=== PATIENT | male | born 1980 | race Caucasian/White ===

== ENCOUNTER 2023-03-17 21:24 | Emergency (ER) | payer OTHER, MEDICAID, SELFPAY ==
[2023-03-17 21:29] VITALS: BP 160/116; PULSE 108; O2SAT 98
[2023-03-17 21:30] VITALS: BP 188/107; PULSE 99; RESP 16; TEMP 36.9; O2SAT 99; BMI 29.5
[2023-03-17 21:48] LABS: MANUAL DIFF FLAG NO
[2023-03-17 21:50] LABS: Basophils Absolute Auto 0.1 X10*3/uL (0.0-0.2); Basophils Percent Auto 0.7 % (0-2); Eosinophils Absolute Auto 0.1 X10*3/uL (0.0-0.4); Eosinophils Percent Auto 1.2 % (0-4); Hematocrit 46.8 % (42.0-52.0); Hemoglobin 14.5 g/dl (14.0-18.0); Imm Gran Abs Auto 0.01 X10*3/uL (0.00-0.03); Imm Gran Pct Auto 0.1 % (0.0-0.4); Lymphocytes Absolute Auto 2.2 X10*3/uL (1.2-4.9); Lymphocytes Percent Auto 32.3 % (20-40); Mean Corpuscular Hemoglobin 25.9 pg (27.0-33.0); Mean Corpuscular Volume 83.7 fL (80.0-98.0); Mean Platelet Volume 9.8 fL (9.4-12.4); Monocytes Absolute Auto 0.4 X10*3/uL (0.1-1.2); Monocytes Percent Auto 6.1 % (2-11); Neutrophils Absolute Auto 4.1 x10*3/uL (2.0-8.3); Neutrophils Percent Auto 59.6 % (45-73); Platelet Count 318 X10*3/uL (160-400); Red Blood Count 5.59 X10*6/uL (4.60-5.80); Red Cell Distribution Width 15.2 % (11.0-16.0); White Blood Count 6.9 X10*3/uL (4.8-10.8)
[2023-03-17 22:05] LABS: Anion Gap 13 (12-20); Blood Urea Nitrogen 15 mg/dL (9-16); Calcium 9.8 mg/dL (8.4-10.2); Carbon Dioxide 31 mmol/L (22-29); Chloride 104 mmol/L (96-108); Creatinine Clr Calc Pharmacy 90.5; Estimated Glomerular Filt Rate > 60; Glucose Random 134 mg/dL (60-115); Sodium 144 mmol/L (135-145)
--- NOTE | 2023-03-17 22:52 | PC.NURSE ---
Spoke with Veronica, the manager enrollment at [facility]. Would like to be notified when disposition is made for pt. States they will arrange ride for pt if discharge. Can be reached at [phone].
--- NOTE | 2023-03-17 22:55 | ECG_ITS ---
Test Reason : DIZZINESS Blood Pressure : / mmHG Vent. Rate : 091 BPM Atrial Rate : 091 BPM P-R Int : 142 ms QRS Dur : 090 ms QT Int : 346 ms P-R-T Axes : 047 009 048 degrees QTc Int : 425 ms Normal sinus rhythm Normal ECG No previous ECGs available Referred By: Alexandro Murillo Electronically Signed By:LIZ SWEENEY MD
[2023-03-17 23:24] VITALS: BP 175/99; PULSE 91; RESP 18; O2SAT 97
--- NOTE | 2023-03-17 23:24 | ED_ITS ---
HPI - General Adult General Chief complaint: Headache Stated complaint: dizziness Time Seen by Provider: 03/17/23 22:44 Source: patient, RN notes reviewed and old records reviewed Mode of arrival: ambulatory Limitations: no limitations History of Present Illness HPI narrative: 42-year-old male with past medical history significant for diabetes, hypertension, polysubstance abuse presents for evaluation of a near syncopal episode. Patient is currently at a recovery center where he has been for last 3 weeks to detox from cocaine and alcohol He has not used either of these substances within the last 3 weeks He states that when he went to get his medications just prior to arrival he became very dizzy and felt weak. He felt like he was going to pass out but did not He denies any chest pain, shortness of breath, palpitations. Currently he feels back to his baseline. He denies any history of cardiac disease No other complaints or concerns at this time Related Data Allergies Allergy/AdvReac Type Severity Reaction Status Date / Time No Known Allergies Allergy Verified 03/17/23 21:37 Review of Systems Constitutional: Constitutional: Reports as per HPI, Denies chills, Denies fatigue and Denies fever(s) Cardiovascular: Cardiovascular: Denies chest pain and Denies dyspnea Respiratory: Respiratory: Denies cough and Denies dyspnea Gastrointestinal: Gastrointestinal: Denies abdominal pain, Denies constipation and Denies vomiting Genitourinary: Genitourinary: Denies difficulty urinating and Denies dysuria Neurologic: Denies focal weakness Endocrine: Endocrine: Denies fatigue PMFSH Social History Social History Advance Directives: No Advance Directives Information Provided: No Physical Exam ED Vital Signs: Vital Signs - 24 hr 03/17/23 21:30 Temperature 98.5 F Pulse Rate 99 Respiratory Rate 16 Blood Pressure 188/107 H Pulse Oximetry 99 Oxygen Delivery Method Room Air BMI result Body Mass Index 29.5 Const General: healthy appearing, comfortable, no acute distress, alert and awake Nutritional Appearance: well nourished Orientation/consciousness: patient oriented x3 HENMT Head: Yes normocephalic and Yes atraumatic Eyes Eyelids: Yes eyelids normal Conjunctivae: conjunctivae normal Sclerae: sclerae normal Corneas: corneas normal Pupils: Equal, round and reactive pupils present EOM: EOMs intact bilaterally Neck Neck: Yes full ROM Resp Effort & Inspection: normal respiratory effort, able to speak in complete sentences, no audible wheezes and not labored Auscultation: clear to auscultation bilaterally Cardio Rate: regular rate Rhythm: regular rhythm GI Inspection: No distended Palpation (GI): Soft to palpation, not firm, nontender, no guarding and not rigid Auscultation: normoactive bowel sounds Skin General skin exam: no rashes or lesions noted and elasticity normal Neuro General: patient oriented x3 Cranial nerves: Yes CN's II-XII intact bilaterally, Yes Equal, round and reactive pupils present and Yes Bilaterally intact EOM present Cognition (Neuro): normal cognition Extrem Other: Moving all extremities well without any obvious deformities Medical Decision Making Medical Decision Making MDM Narrative: 42-year-old male presents for evaluation of a near syncopal episode. He did not have a syncopal episode, never had any chest pain or shortness of breath. Patient had a workup that included labs, EKG. All of which was reassuring. His CO2 was slightly high which may be related to sleep apnea. EKG was sinus rhythm at 91 beats per minute. No acute ischemic changes. Patient was mildly hypertensive but is currently 175/99. Again he is currently asymptomatic, it is possible he had a vasovagal episode but is stable for discharge at this time. Differential Diagnosis Near syncope Syncope Cardiac arrhythmia Orthostasis Lab Data 03/17/23 21:43 03/17/23 21:43 Labs: Lab Results 03/17/23 03/17/23 Range/Units 21:43 21:43 WBC 6.9 (4.8-10.8) X10*3/uL RBC 5.59 (4.60-5.80) X10*6/uL Hgb 14.5 (14.0-18.0) g/dl Hct 46.8 (42.0-52.0) % MCV 83.7 (80.0-98.0) fL MCH 25.9 L (27.0-33.0) pg MCHC 31.0 (31.0-36.0) g/dl RDW 15.2 (11.0-16.0) % Plt Count 318 (160-400) X10*3/uL MPV 9.8 (9.4-12.4) fL Immature Gran % (Auto) 0.1 (0.0-0.4) % Neut % (Auto) 59.6 (45-73) % Lymph % (Auto) 32.3 (20-40) % [place] % (Auto) 6.1 (2-11) % Eos % (Auto) 1.2 (0-4) % Baso % (Auto) 0.7 (0-2) % Lymph # (Auto) 2.2 (1.2-4.9) X10*3/uL [place] # (Auto) 0.4 (0.1-1.2) X10*3/uL Eos # (Auto) 0.1 (0.0-0.4) X10*3/uL Baso # (Auto) 0.1 (0.0-0.2) X10*3/uL Abs Immat Gran (auto) 0.01 (0.00-0.03) X10*3/uL Absolute Neuts (auto) 4.1 (2.0-8.3) x10*3/uL Absolute Nucleated RBC 0.000 (0.0-0.012) X10*3/uL Nucleated RBC % (auto) 0.0 (0.0-0.2) /100WBC Sodium 144 (135-145) mmol/L Potassium 4.0 (3.3-5.1) mmol/L Chloride 104 (96-108) mmol/L Carbon Dioxide 31 H (22-29) mmol/L Anion Gap 13 (12-20) BUN 15 (9-16) mg/dL Creatinine 1.11 (0.5-1.4) mg/dL Estim Creat Clear Calc 90.5 Estimated GFR > 60 Random Glucose 134 H (60-115) mg/dL Calcium 9.8 (8.4-10.2) mg/dL Discharge Plan Discharge Clinical Impression: Near syncope Patient Disposition: Xfer Other Transfer Details: [facility] recovery center Instructions: Near Syncope (ED) Additional Instructions: Your workup in the emergency department today was reassuring. This includes your blood work, EKG Take all your medications as prescribed Follow-up with your primary doctor
--- NOTE | 2023-03-17 23:27 | PC.NURSE ---
Veronica, program facilitator states she will be out to get pt in 15 minutes.
== END 2023-03-18 00:02 | disposition home or self-care (01) ==
PROVIDERS: Emergency Provider Emergency Medicine; PCP Internal Medicine
DX: R55 Syncope and collapse (principal); E11.9 Type 2 diabetes mellitus without complications; I10 Essential (primary) hypertension; F19.10 Other psychoactive substance abuse, uncomplicated
CPT/HCPCS: 36415; 80048; 85025; 93005; 99283; 99285

== ENCOUNTER 2023-03-23 14:42 | Emergency (ER) | payer OTHER, SELFPAY ==
--- NOTE | ~2023-03-23 | XR_ITS ---
EXAMINATION: Lumbar spine and sacrum x-rays CLINICAL INFORMATION: Pain COMPARISON: None. TECHNIQUE: 3 views of the lumbar spine and 3 views of the sacrum FINDINGS: Lumbar spine: There may be transitional anatomy. For the purposes of dictation, levels are designated with hypoplastic ribs at T12. There is a mild compression fracture of the L1 vertebral body indeterminate age. No other fracture. Disc spaces are normal. Paraspinal soft tissues are normal. Sacrum and coccyx: Bone alignment is normal. No fracture or dislocation. The sacroiliac joints are normal. There are osteophytes at both hip joints. XR/XR lumbar spine 2-3V IMPRESSION: Lumbar spine: Mild L1 vertebral body compression fracture, indeterminate age. Sacrum and coccyx: Unremarkable exam.
--- NOTE | ~2023-03-23 | XR_ITS ---
EXAMINATION: XR ABDOMEN KUB CLINICAL INDICATION: Back pain COMPARISON: None available. TECHNIQUE: AP view of the abdomen. FINDINGS: The bowel gas pattern is normal with no evidence of ileus or obstruction. No unusual soft tissue calcifications are noted. The bones are unremarkable. XR/XR KUB IMPRESSION: Unremarkable examination.
--- NOTE | ~2023-03-23 | XR_ITS ---
EXAMINATION: Lumbar spine and sacrum x-rays CLINICAL INFORMATION: Pain COMPARISON: None. TECHNIQUE: 3 views of the lumbar spine and 3 views of the sacrum FINDINGS: Lumbar spine: There may be transitional anatomy. For the purposes of dictation, levels are designated with hypoplastic ribs at T12. There is a mild compression fracture of the L1 vertebral body indeterminate age. No other fracture. Disc spaces are normal. Paraspinal soft tissues are normal. Sacrum and coccyx: Bone alignment is normal. No fracture or dislocation. The sacroiliac joints are normal. There are osteophytes at both hip joints. XR/XR sacrum coccyx min 2V IMPRESSION: Lumbar spine: Mild L1 vertebral body compression fracture, indeterminate age. Sacrum and coccyx: Unremarkable exam.
--- NOTE | 2023-03-23 15:27 | ED.GENADULT ---
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 He otherwise denies any fecal incontinence during waking hours, denies any weakness in either lower extremity and denies any difficulty with urination. He denies any IVDA, fevers, chills and states he has had some nausea and reports he has had a history of back injuries and has underlying neuropathy in bilateral legs. Patient states he has been taking all medication as prescribed and does say that his point of care at the home was 400 earlier. Related Data Allergies Allergy/AdvReac Type Severity Reaction Status Date / Time No Known Allergies Allergy Verified 03/17/23 21:37 Review of Systems Review of Systems: Pertinent positives and negatives as stated in HPI [facility] Past Medical History Source: nursing notes reviewed Medical History Back pain Diabetes Neuropathy Social History Social History Alcohol intake: current Smoked in Last 30 Days: No Use of substances other than those prescribed or required for medical reasons: Yes Substance Use Type: Crack/Cocaine Advance Directives: No Advance Directives Information Provided: No Physical Exam ED Vital Signs: Vital Signs - 24 hr 03/23/23 15:29 03/23/23 17:01 03/23/23 18:00 Temperature 96.8 F 98.1 F 98 F Pulse Rate 103 H 95 93 Respiratory Rate 18 16 16 Blood Pressure 189/112 H 189/105 H 189/117 H Pulse Oximetry 98 97 98 Oxygen Delivery Method Room Air Room Air BMI result Body Mass Index 30.4 VITAL SIGNS: Reviewed. GENERAL: Well developed, well nourished, in no acute distress. HEAD: Normocephalic/atraumatic EYES: PERRLA, EOMI EARS: Ext canals without abnormality NOSE: Nares patent bilateral OROPHARYNX: no oral lesions noted, posterior pharynx clear NECK: Supple, no adenopathy LUNGS: Normal breath sounds. No adventitious sounds or accessory muscle use. SpO2<98> CARDIOVASCULAR: Regular rate and rhythm without noted murmurs ABDOMEN: Soft, non-tender, non-distended with bowel sounds, no groin numbness. KULWINDER: Declined MUSCULOSKELETAL: No tenderness, deformities, or effusions noted on gross inspection. EXTREMITIES: No cyanosis, clubbing or edema. SKIN: Inspection of the skin reveals no rashes NEUROLOGIC: Alert and oriented x 4. Strength and sensation to light touch were grossly intact x 4, DTRs intact. Course Course Course Narrative: This is an RME: Additional HPI, ROS, PE not included below will be deferred to primary provider. This is a 89-iinc-wva-male presenting to the emergency department with complaints of fecal incontinence during the night for the last 2 weeks. Also reports that his sugars have been elevated over the last 2 weeks - running in the 400s.No bloody or black stool. From [place], but living in [place] at a transitional housing/sober living for etoh and cocaine. no hx of IVDA. Complaining of back pain. Has chronic neuropathy in BL legs, reports weakness in lower extremities for the last 2 years. Pt has some lumbar spine tenderness with palpation, no overlying erythema or edema noted. Plan: Labs , POC ordered. Xray l-spine Medical Decision Making Medical Decision Making MDM Narrative: 42-year-old male with prior history of alcohol and drug use presents with concerns that the food is very bad at his current residence that he has had diarrhea but otherwise denies symptoms that would suggest infectious in etiology. On review of all investigations there are no findings to further suggest acute bony or intestinal etiologies. I have no concerns for cauda equine at this time as DTRs are intact and there is no history of IVDA, saddle anesthesia, or weakness in either lower extremity. There is a noted L1 compression fracture that although the radiologist annotated age indeterminate patient states that this has been there since a few years ago from a back injury for which he wore a back brace for an extended period of time. On review of all investigations my interpretation is that this is likely associated with the detox process and there are no clinical or historical findings or objective findings to suggest infectious etiology, no concerns of cauda equina and no episodes of diarrhea here in the emergency room for resting further conduct evaluation on. He is otherwise hemodynamically stable mildly hypertensive but suspect he needs to return home and take his medications. Differential Diagnosis Please see the discussion above Lab Data Please see the discussion above 03/23/23 15:46 03/23/23 15:46 Labs: Lab Results 03/23/23 03/23/23 03/23/23 Range/Units 15:42 15:46 15:46 WBC 5.8 (4.8-10.8) X10*3/uL RBC 4.96 (4.60-5.80) X10*6/uL Hgb 13.3 L (14.0-18.0) g/dl Hct 42.1 (42.0-52.0) % MCV 84.9 (80.0-98.0) fL MCH 26.8 L (27.0-33.0) pg MCHC 31.6 (31.0-36.0) g/dl RDW 14.8 (11.0-16.0) % Plt Count 273 (160-400) X10*3/uL MPV 10.1 (9.4-12.4) fL Immature Gran % (Auto) 0.2 (0.0-0.4) % Neut % (Auto) 54.9 (45-73) % Lymph % (Auto) 37.1 (20-40) % [place] % (Auto) 5.5 (2-11) % Eos % (Auto) 1.6 (0-4) % Baso % (Auto) 0.7 (0-2) % Lymph # (Auto) 2.2 (1.2-4.9) X10*3/uL [place] # (Auto) 0.3 (0.1-1.2) X10*3/uL Eos # (Auto) 0.1 (0.0-0.4) X10*3/uL Baso # (Auto) 0.0 (0.0-0.2) X10*3/uL Abs Immat Gran (auto) 0.01 (0.00-0.03) X10*3/uL Absolute Neuts (auto) 3.2 (2.0-8.3) x10*3/uL Absolute Nucleated RBC 0.000 (0.0-0.012) X10*3/uL Nucleated RBC % (auto) 0.0 (0.0-0.2) /100WBC Sodium 140 (135-145) mmol/L Potassium 4.6 (3.3-5.1) mmol/L Chloride 100 (96-108) mmol/L Carbon Dioxide 33 H (22-29) mmol/L Anion Gap 12 (12-20) BUN 12 (9-16) mg/dL Creatinine 0.89 (0.5-1.4) mg/dL Estim Creat Clear Calc 110.8 Estimated GFR > 60 POC Glucose 189 H (60-115) mg/dL Random Glucose 196 H (60-115) mg/dL Calcium 9.7 (8.4-10.2) mg/dL Magnesium 1.5 L (1.6-2.6) mg/dL Total Bilirubin 0.2 (0.0-1.0) mg/dL Direct Bilirubin < 0.2 (0.0-0.5) mg/dL AST 26 (5-37) U/L ALT 27 (0-40) U/L Alkaline Phosphatase 83 (39-117) U/L Total Protein 6.3 L (6.5-8.0) g/dL Albumin 3.6 (3.5-5.0) g/dL Lipase 36 (8-78) U/L Urine Color Urine Appearance Urine pH (5.0-9.0) Ur Specific [place] (1.005-1.025) Urine Protein (Neg-Trace) mg/dL Urine Glucose (UA) (Negative) mg/dL Urine Ketones (Negative) mg/dL Urine Blood (Negative) Urine Nitrite (Negative) Ur Leukocyte Esterase (Negative) Urine RBC (0-2) /HPF Urine WBC (0-5) /HPF Ur Squamous Epith Cells (0-2) /HPF Urine Bacteria (None Seen) Hyaline Casts (0-2) /LPF Urine Opiates Screen (Not Detect) Urine Fentanyl Screen (Not Detect) Ur Barbiturates Screen (Not Detect) Ur Phencyclidine Scrn (Not Detect) Ur Amphetamines Screen (Not Detect) U Benzodiazepines Scrn (Not Detect) Urine Cocaine Screen (Not Detect) U Marijuana (THC) Screen (Not Detect) Ethyl Alcohol < 10 mg/dL 03/23/23 03/23/23 Range/Units 17:50 17:50 WBC (4.8-10.8) X10*3/uL RBC (4.60-5.80) X10*6/uL Hgb (14.0-18.0) g/dl Hct (42.0-52.0) % MCV (80.0-98.0) fL MCH (27.0-33.0) pg MCHC (31.0-36.0) g/dl RDW (11.0-16.0) % Plt Count (160-400) X10*3/uL MPV (9.4-12.4) fL Immature Gran % (Auto) (0.0-0.4) % Neut % (Auto) (45-73) % Lymph % (Auto) (20-40) % [place] % (Auto) (2-11) % Eos % (Auto) (0-4) % Baso % (Auto) (0-2) % Lymph # (Auto) (1.2-4.9) X10*3/uL [place] # (Auto) (0.1-1.2) X10*3/uL Eos # (Auto) (0.0-0.4) X10*3/uL Baso # (Auto) (0.0-0.2) X10*3/uL Abs Immat Gran (auto) (0.00-0.03) X10*3/uL Absolute Neuts (auto) (2.0-8.3) x10*3/uL Absolute Nucleated RBC (0.0-0.012) X10*3/uL Nucleated RBC % (auto) (0.0-0.2) /100WBC Sodium (135-145) mmol/L Potassium (3.3-5.1) mmol/L Chloride (96-108) mmol/L Carbon Dioxide (22-29) mmol/L Anion Gap (12-20) BUN (9-16) mg/dL Creatinine (0.5-1.4) mg/dL Estim Creat Clear Calc Estimated GFR POC Glucose (60-115) mg/dL Random Glucose (60-115) mg/dL Calcium (8.4-10.2) mg/dL Magnesium (1.6-2.6) mg/dL Total Bilirubin (0.0-1.0) mg/dL Direct Bilirubin (0.0-0.5) mg/dL AST (5-37) U/L ALT (0-40) U/L Alkaline Phosphatase (39-117) U/L Total Protein (6.5-8.0) g/dL Albumin (3.5-5.0) g/dL Lipase (8-78) U/L Urine Color Yellow Urine Appearance Clear Urine pH 8.0 (5.0-9.0) Ur Specific [place] 1.025 (1.005-1.025) Urine Protein 100 (2+) H (Neg-Trace) mg/dL Urine Glucose (UA) >=1000 H (Negative) mg/dL Urine Ketones Negative (Negative) mg/dL Urine Blood Negative (Negative) Urine Nitrite Negative (Negative) Ur Leukocyte Esterase Negative (Negative) Urine RBC 0-2 (0-2) /HPF Urine WBC 0-5 (0-5) /HPF Ur Squamous Epith Cells 0-2 (0-2) /HPF Urine Bacteria None Seen (None Seen) Hyaline Casts 0-2 (0-2) /LPF Urine Opiates Screen Not Detected (Not Detect) Urine Fentanyl Screen Not Detected (Not Detect) Ur Barbiturates Screen Not Detected (Not Detect) Ur Phencyclidine Scrn Not Detected (Not Detect) Ur Amphetamines Screen Not Detected (Not Detect) U Benzodiazepines Scrn Not Detected (Not Detect) Urine Cocaine Screen Not Detected (Not Detect) U Marijuana (THC) Screen Not Detected (Not Detect) Ethyl Alcohol mg/dL Radiology Impression Radiologist Impression: My interpretation is otherwise in agreement with radiology's impression External Record Review External record reviewed: Outpatient record and Prior outpatient labs Discharge Plan Discharge Clinical Impression: Diarrhea Patient Disposition: Home, Self-Care Instructions: Nutrition Tips for Relief of Diarrhea (ED) Additional Instructions: 1. Reanudar todos los medicamentos caseros seg?n lo prescrito. 2. Revise las recomendaciones para los cambios en la dieta, discuta min necesidades diet?shaun con el personal de la instalaci?n. 3. Deber? realizar un seguimiento con alfred proveedor de atenci?n primaria en los pr?ximos 1 o 2 d?as o volver a controlar alfred CBC. Regrese a la steven de emergencias si los s?ntomas empeoran. 1. Resume all home medications as prescribed. 2. Please review the recommendations for dietary changes, please discuss your dietary needs with the staff at the facility. 3. You will need to follow-up with your primary care provider in the next 1-2 days or rechecking your CBC. Return to the ER for any worsening symptoms. Referrals: Shanice Wheeler MD [Primary Care Provider] - Print Language: Luxembourgish
[2023-03-23 15:29] VITALS: BP 189/112; PULSE 103; RESP 18; TEMP 36; O2SAT 98; BMI 30.4
[2023-03-23 15:45] LABS: Glucose, Whole Blood 189 mg/dL (60-115)
[2023-03-23 16:05] LABS: MANUAL DIFF FLAG NO
[2023-03-23 16:06] LABS: Basophils Percent Auto 0.7 % (0-2); Eosinophils Absolute Auto 0.1 X10*3/uL (0.0-0.4); Eosinophils Percent Auto 1.6 % (0-4); Hematocrit 42.1 % (42.0-52.0); Hemoglobin 13.3 g/dl (14.0-18.0); Imm Gran Abs Auto 0.01 X10*3/uL (0.00-0.03); Imm Gran Pct Auto 0.2 % (0.0-0.4); Lymphocytes Absolute Auto 2.2 X10*3/uL (1.2-4.9); Lymphocytes Percent Auto 37.1 % (20-40); Mean Corpuscular HGB Conc 31.6 g/dl (31.0-36.0); Mean Corpuscular Hemoglobin 26.8 pg (27.0-33.0); Mean Corpuscular Volume 84.9 fL (80.0-98.0); Mean Platelet Volume 10.1 fL (9.4-12.4); Monocytes Absolute Auto 0.3 X10*3/uL (0.1-1.2); Monocytes Percent Auto 5.5 % (2-11); Neutrophils Absolute Auto 3.2 x10*3/uL (2.0-8.3); Neutrophils Percent Auto 54.9 % (45-73); Platelet Count 273 X10*3/uL (160-400); Red Blood Count 4.96 X10*6/uL (4.60-5.80); Red Cell Distribution Width 14.8 % (11.0-16.0); White Blood Count 5.8 X10*3/uL (4.8-10.8)
[2023-03-23 16:26] LABS: Alanine Aminotransferase 27 U/L (0-40); Albumin Level 3.6 g/dL (3.5-5.0); Alkaline Phosphatase 83 U/L (39-117); Anion Gap 12 (12-20); Aspartate Amino Transferase 26 U/L (5-37); Bilirubin Direct < 0.2 mg/dL (0.0-0.5); Bilirubin Total 0.2 mg/dL (0.0-1.0); Blood Urea Nitrogen 12 mg/dL (9-16); Calcium 9.7 mg/dL (8.4-10.2); Carbon Dioxide 33 mmol/L (22-29); Chloride 100 mmol/L (96-108); Creatinine Clr Calc Pharmacy 110.8; Estimated Glomerular Filt Rate > 60; Glucose Random 196 mg/dL (60-115); Lipase 36 U/L (8-78); Magnesium 1.5 mg/dL (1.6-2.6); Potassium 4.6 mmol/L (3.3-5.1); Sodium 140 mmol/L (135-145); Total Protein 6.3 g/dL (6.5-8.0)
[2023-03-23 17:01] VITALS: BP 189/105; PULSE 95; RESP 16; TEMP 36.7; O2SAT 97
[2023-03-23 17:59] LABS: Appearance Urine Clear; Color Urine Yellow; Glucose Urine UA >=1000 mg/dL (Negative); Leukocyte Esterase Urine Negative (Negative); Nitrite Urine Negative (Negative); Specific Gravity - Urine 1.025 (1.005-1.025); UMIC TRIGGER UACC YES; Urine Blood Negative (Negative); Urine Ketones Negative (Negative); Urine Protein 100 (2+) mg/dL (Neg-Trace)
[2023-03-23 18:00] VITALS: BP 189/117; PULSE 93; RESP 16; TEMP 36.6; O2SAT 98
[2023-03-23 18:01] LABS: Bacteria Urine None Seen (None Seen); Hyaline Casts Urine 0-2 /LPF (0-2); RBC Urine 0-2 /HPF (0-2); Squamous Epithelial Cell Urine 0-2 /HPF (0-2); WBC Urine 0-5 /HPF (0-5)
[2023-03-23 18:13] LABS: Ethanol < 10 mg/dL
[2023-03-23 18:14] LABS: Amphetamine Screen Urine Not Detected (Not Detect); Barbiturates, Urine Not Detected (Not Detect); Benzodiazepines Screen Urine Not Detected (Not Detect); Cannabinoid Screen Urine Not Detected (Not Detect); Cocaine Screen Urine Not Detected (Not Detect); Fentanyl, urine Not Detected (Not Detect); Opiate Screen Urine Not Detected (Not Detect); Phencyclidine Screen Urine Not Detected (Not Detect)
--- NOTE | 2023-03-23 18:15 | PC.NURSE ---
pt aox4, hypertensive, MD aware. vitals otherwise stable, not reporting any pain. will ctm
[2023-03-23] MEDS: Magnesium Oxide 400 MG TABLET PO (18:36)
[2023-03-23 18:42] VITALS: BP 203/118; PULSE 95; RESP 16; TEMP 37; O2SAT 97
[2023-03-23 18:55] VITALS: BP 193/115; PULSE 92; RESP 18; O2SAT 95
--- NOTE | 2023-03-23 19:33 | PC.NURSE ---
attempting to call [facility] and get pt a ride home from program, so far unable to get the appropriate people on the phone. will continue trying
--- NOTE | 2023-03-23 19:35 | PC.NURSE ---
this nurse trying to get pt a ride home from [facility] (his program). unable to get right people on the phone thus far
--- NOTE | 2023-03-23 19:38 | PC.NURSE ---
awaiting callback from [employer] security site supervisor about a ride home for pt
[2023-03-23 20:00] VITALS: BP 171/103; PULSE 98; RESP 16; TEMP 36.3; O2SAT 98
--- NOTE | 2023-03-23 20:28 | PC.NURSE ---
This RN present when ride ([facility] facility employee) arrived to take pt. Employee requested general overview of findings. Explained that there were no acute findings, and that pt was requested to follow up with primary [facility]UNG. Pt left without incident.
== END 2023-03-23 20:30 | disposition home or self-care (01) ==
PROVIDERS: Physician Assistant Medical; Emergency Provider Student in an Organized Health Care Education/Training Program; PCP Internal Medicine
DX: R19.7 Diarrhea, unspecified (principal); M54.50 Low back pain, unspecified; M54.2 Cervicalgia; R10.2 Pelvic and perineal pain; M53.3 Sacrococcygeal disorders, not elsewhere classified; Z79.899 Other long term (current) drug therapy
CPT/HCPCS: 36415; 72100; 72220; 74018; 80048; 80076; 80307; 81001; 82947; 83690; 83735; 85025; 99283; 99284

== ENCOUNTER 2023-04-01 20:21 | Emergency (ER) | payer OTHER, SELFPAY ==
[2023-04-01 20:27] VITALS: BP 185/93; BP 207/111; PULSE 110; PULSE 96; RESP 18; TEMP 37; O2SAT 97; O2SAT 99; BMI 27.4
[2023-04-01 20:38] VITALS: BP 207/111; PULSE 92; RESP 14; TEMP 37; O2SAT 97
[2023-04-01 20:39] LABS: Glucose, Whole Blood 336 mg/dL (60-115)
--- NOTE | 2023-04-01 21:00 | ECG_ITS ---
Test Reason : chest pain Blood Pressure : / mmHG Vent. Rate : 085 BPM Atrial Rate : 085 BPM P-R Int : 160 ms QRS Dur : 084 ms QT Int : 364 ms P-R-T Axes : 045 011 057 degrees QTc Int : 433 ms Artifact in tracing Normal sinus rhythm Normal ECG When compared with ECG of 17-MAR-2023 23:15, No significant change was found Referred By: Kendra Courtney Electronically Signed By:NAKUL RASMUSSEN
--- NOTE | 2023-04-01 21:01 | ED.GENADULT ---
HPI - General Adult General Chief complaint: Recheck/Abnormal Lab/Rx Stated complaint: WEAKNESS, DIZZINESS Time Seen by Provider: 04/01/23 21:00 Source: patient, EMS and other (correction staff) Mode of arrival: EMS Limitations: no limitations History of Present Illness HPI narrative: Patient is a 42 year old assigned male at with a history of DM presenting to the emergency department today with weakness. Patient states that starting today he had intermittent dizziness and weakness. Patient denies any current dizziness, lightheadedness, abdominal pain, nausea, vomiting, fever, chills, blurry vision, double vision, loss of vision, chest pain, difficulty breathing, shortness of breath, back pain, night sweats, pain with urination, increased urinary frequency, increased urinary urgency, blood in his urine or stool, syncope or a near syncopal episode, recent trauma or falls, bowel incontinence, bladder incontinence, bowel retention, bladder retention, or any other complaints at this time. Onset (ago): hour(s) Severity: mild Severity scale (1-10): 2 Relieving factors: none Exacerbating factors: none Associated symptoms: denies other symptoms Treatments prior to arrival: none Related Data Allergies Allergy/AdvReac Type Severity Reaction Status Date / Time No Known Allergies Allergy Verified 03/17/23 21:37 Review of Systems Constitutional: Constitutional: Reports no additional constitutional complaints, Denies chills, Denies fever(s), Denies night sweats and Reports weakness Eyes: Eyes: Reports no additional eye complaints, Denies blurry vision, Denies change in vision, Denies diplopia, Denies eye discharge, Denies loss of vision and Denies eye pain ENT: Reports dizziness (intermittent) Cardiovascular: Cardiovascular: Reports no additional cardiovascular complaints, Denies chest pain, Denies lightheadedness, Denies Loss of Consciousness and Denies dyspnea Respiratory: Respiratory: Reports no additional respiratory complaints and Denies dyspnea Gastrointestinal: Gastrointestinal: Reports no additional gastrointestinal complaints, Denies abdominal pain, Denies melena, Denies hematochezia, Denies change in bowel habits and Denies change in stool character Genitourinary: Genitourinary: Reports no additional male genitourinary complaints, Denies hematuria, Denies oliguria, Denies difficulty urinating, Denies dysuria, Denies urinary frequency, Denies urinary hesitancy, Denies urinary incontinence and Denies urinary urgency Musculoskeletal: Musculoskeletal: Reports no additional musculoskeletal complaints, Denies numbness and Denies tingling Neurologic: Reports dizziness (intermittent), Denies loss of vision, Denies numbness, Denies tingling and Reports weakness Psychiatric: Psychiatric: Reports no additional psychiatric complaints Endocrine: Endocrine: Reports no additional endocrine complaints Hematologic/Lymphatic: Hematologic/Lymphatic: Reports no additional hematologic/lymphatic complaints Allergic/Immunologic: Allergic/Immunologic: Reports no additional allergic/immunologic complaints PMFSH Past Medical History Attestation statement: The following information was validated with the patient. (all information validated with the patient's correction staff) Source: old records reviewed, nursing notes reviewed and other (correction staff) Medical History Back pain Diabetes Neuropathy Social History Social History Alcohol intake: former Smoked in Last 30 Days: No Use of substances other than those prescribed or required for medical reasons: No Substance Use Type: Crack/Cocaine Advance Directives: No Advance Directives Information Provided: No Physical Exam ED Vital Signs: Vital Signs - 24 hr 04/01/23 20:27 04/01/23 20:38 04/01/23 21:20 Temperature 98.6 F 98.6 F 98.6 F Pulse Rate 96 92 87 Respiratory Rate 18 14 12 Blood Pressure 207/111 H 207/111 H 165/104 H Pulse Oximetry 97 97 95 Oxygen Delivery Method Room Air Room Air Room Air 04/01/23 22:00 Temperature 98.6 F Pulse Rate 78 Respiratory Rate 11 L Blood Pressure 139/78 Pulse Oximetry 96 Oxygen Delivery Method Room Air BMI result Body Mass Index 27.4 Const General: cooperative, no acute distress, alert and awake Nutritional Appearance: well nourished Orientation/consciousness: patient oriented x3 Limitations: no limitations HENNJ Head: Yes normal to inspection and Yes atraumatic Ears: hearing grossly normal bilaterally and external ears normal General nose exam: Normal external nose present, no nasal discharge noted and no epistaxis Face and sinus: Yes normal facial exam, No abrasion and No laceration Mouth: Normal oral and palatal mucosa present, no drooling and no muffled voice Eyes General: appearance normal, both eyes and all related structures Periorbital: periorbital findings normal Eyelids: Yes eyelids normal Conjunctivae: conjunctivae normal Pupils: Equal, round and reactive pupils present EOM: EOMs intact bilaterally Neck Neck: Yes normal visual inspection, Yes full ROM and Yes no lymphadenopathy Chest Chest palpation & inspection: normal inspection of the chest Resp Effort & Inspection: normal respiratory effort and able to speak in complete sentences Auscultation: clear to auscultation bilaterally Cardio Rate: regular rate Rhythm: regular rhythm GI Inspection: Yes normal to inspection Palpation (GI): Soft to palpation, not firm, nontender and no guarding Neuro General: patient oriented x3 and moves all extremities Cranial nerves: Yes Equal, round and reactive pupils present Cognition (Neuro): normal cognition Motor exam (neuro): 5/5 motor strength present throughout Sensory Exam: Normal double simultaneous stimulation for sensation Coordination: [id number] test normal Extrem General: Yes normal to inspection, Yes full ROM and Yes capillary refill normal Psych Appearance: grossly normal Mental Status: mental status grossly normal Affect: normal affect Attitude: cooperative Thought process: Normal thought process present Thought content: Normal thought content present Insight: Good insight present (Psych) Medications Administered Discontinued Medications Generic Name Dose Route Start Last Admin Trade Name Freq PRN Reason Stop Dose Admin Sodium Chloride 1,000 mls @ 999 mls/hr 04/01/23 21:00 04/01/23 22:37 Ns IV 04/01/23 22:00 Infused .Q1H1M NITIN Infusion Sodium Chloride 1,000 mls @ 999 mls/hr 04/01/23 22:00 04/01/23 22:38 Ns IV 04/01/23 23:00 Infused .Q1H1M NITIN Infusion Medical Decision Making Medical Decision Making [facility] Narrative: Patient is a 42 year old assigned male at with a history of DM presenting to the emergency department today with intermittent dizziness. Patient's physical exam was unremarkable. Patient's blood work was unremarkable. Patient's urine showed no acute process. Patient's EKG was unremarkable. I explained my physical exam findings as well as all test results to the patient. I answered all questions asked by the patient. Patient received IV fluids which he stated helped his symptoms significantly. I stressed the importance of the patient taking his medication as prescribed. I stressed the importance of the patient following up with his primary care provider. I stressed the importance of the patient returning to the emergency department immediately if his symptoms were to worsen or if he were to develop any dizziness, shortness of breath, difficulty breathing, chest pain, blurry vision, loss of vision, nausea, vomiting, abdominal pain, fever, chills, back pain, or any other complaints. Patient verbalized agreement and understanding with this treatment plan and discharge. Differential Diagnosis Differential Diagnoses: The differential diagnosis associated with the presentation includes weakness, dizziness, dehydration Admission/Observation Consideration of admission/observation: Escalation of care including admission/observation considered Patient would have been admitted to the hospital had his work up had any findings where hospital admission was appropriate. Lab Data MDM Lab Attestation statement: I reviewed the patient's lab results. My interpretation of these studies and their corresponding values is that they are grossly normal. 04/01/23 21:10 04/01/23 21:10 Labs: Lab Results 04/01/23 04/01/23 04/01/23 Range/Units 20:35 21:10 21:10 WBC 6.3 (4.8-10.8) X10*3/uL RBC 4.95 (4.60-5.80) X10*6/uL Hgb 12.9 L (14.0-18.0) g/dl Hct 41.2 L (42.0-52.0) % MCV 83.2 (80.0-98.0) fL MCH 26.1 L (27.0-33.0) pg MCHC 31.3 (31.0-36.0) g/dl RDW 15.4 (11.0-16.0) % Plt Count 317 (160-400) X10*3/uL MPV 9.5 (9.4-12.4) fL Immature Gran % (Auto) 0.2 (0.0-0.4) % Neut % (Auto) 60.8 (45-73) % Lymph % (Auto) 30.0 (20-40) % Heard % (Auto) 6.3 (2-11) % Eos % (Auto) 2.1 (0-4) % Baso % (Auto) 0.6 (0-2) % Lymph # (Auto) 1.9 (1.2-4.9) X10*3/uL Heard # (Auto) 0.4 (0.1-1.2) X10*3/uL Eos # (Auto) 0.1 (0.0-0.4) X10*3/uL Baso # (Auto) 0.0 (0.0-0.2) X10*3/uL Abs Immat Gran (auto) 0.01 (0.00-0.03) X10*3/uL Absolute Neuts (auto) 3.9 (2.0-8.3) x10*3/uL Absolute Nucleated RBC 0.000 (0.0-0.012) X10*3/uL Nucleated RBC % (auto) 0.0 (0.0-0.2) /100WBC Sodium 142 (135-145) mmol/L Potassium 4.0 (3.3-5.1) mmol/L Chloride 106 (96-108) mmol/L Carbon Dioxide 27 (22-29) mmol/L Anion Gap 13 (12-20) BUN 13 (9-16) mg/dL Creatinine 1.09 (0.5-1.4) mg/dL Estim Creat Clear Calc 85.4 Estimated GFR > 60 POC Glucose 336 H (60-115) mg/dL Random Glucose 326 H (60-115) mg/dL Calcium 9.3 (8.4-10.2) mg/dL Magnesium 1.9 (1.6-2.6) mg/dL Total Bilirubin 0.2 (0.0-1.0) mg/dL AST 29 (5-37) U/L ALT 28 (0-40) U/L Alkaline Phosphatase 82 (39-117) U/L Total Protein 6.4 L (6.5-8.0) g/dL Albumin 3.4 L (3.5-5.0) g/dL Urine Color Urine Appearance Urine pH (5.0-9.0) Ur Specific [place] (1.005-1.025) Urine Protein (Neg-Trace) mg/dL Urine Glucose (UA) (Negative) mg/dL Urine Ketones (Negative) mg/dL Urine Blood (Negative) Urine Nitrite (Negative) Ur Leukocyte Esterase (Negative) Urine RBC (0-2) /HPF Urine WBC (0-5) /HPF Ur Squamous Epith Cells (0-2) /HPF Urine Bacteria (None Seen) Hyaline Casts (0-2) /LPF COVID-19 ([facility]) (Negative) COVID-19 Clin Com 04/01/23 04/01/23 04/01/23 Range/Units 21:10 21:12 22:47 WBC (4.8-10.8) X10*3/uL RBC (4.60-5.80) X10*6/uL Hgb (14.0-18.0) g/dl Hct (42.0-52.0) % MCV (80.0-98.0) fL MCH (27.0-33.0) pg MCHC (31.0-36.0) g/dl RDW (11.0-16.0) % Plt Count (160-400) X10*3/uL MPV (9.4-12.4) fL Immature Gran % (Auto) (0.0-0.4) % Neut % (Auto) (45-73) % Lymph % (Auto) (20-40) % Heard % (Auto) (2-11) % Eos % (Auto) (0-4) % Baso % (Auto) (0-2) % Lymph # (Auto) (1.2-4.9) X10*3/uL Heard # (Auto) (0.1-1.2) X10*3/uL Eos # (Auto) (0.0-0.4) X10*3/uL Baso # (Auto) (0.0-0.2) X10*3/uL Abs Immat Gran (auto) (0.00-0.03) X10*3/uL Absolute Neuts (auto) (2.0-8.3) x10*3/uL Absolute Nucleated RBC (0.0-0.012) X10*3/uL Nucleated RBC % (auto) (0.0-0.2) /100WBC Sodium (135-145) mmol/L Potassium (3.3-5.1) mmol/L Chloride (96-108) mmol/L Carbon Dioxide (22-29) mmol/L Anion Gap (12-20) BUN (9-16) mg/dL Creatinine (0.5-1.4) mg/dL Estim Creat Clear Calc Estimated GFR POC Glucose 129 H (60-115) mg/dL Random Glucose (60-115) mg/dL Calcium (8.4-10.2) mg/dL Magnesium (1.6-2.6) mg/dL Total Bilirubin (0.0-1.0) mg/dL AST (5-37) U/L ALT (0-40) U/L Alkaline Phosphatase (39-117) U/L Total Protein (6.5-8.0) g/dL Albumin (3.5-5.0) g/dL Urine Color Yellow Urine Appearance Clear Urine pH 7.0 (5.0-9.0) Ur Specific [place] >= 1.030 H (1.005-1.025) Urine Protein 100 (2+) H (Neg-Trace) mg/dL Urine Glucose (UA) >=1000 H (Negative) mg/dL Urine Ketones Negative (Negative) mg/dL Urine Blood Negative (Negative) Urine Nitrite Negative (Negative) Ur Leukocyte Esterase Negative (Negative) Urine RBC 0-2 (0-2) /HPF Urine WBC 0-5 (0-5) /HPF Ur Squamous Epith Cells 0-2 (0-2) /HPF Urine Bacteria None Seen (None Seen) Hyaline Casts 0-2 (0-2) /LPF COVID-19 ([facility]) Negative (Negative) COVID-19 Clin Com See Note Independent Interpretation I performed an independent interpretation of an: EKG Interpretation: Vent. Rate: 085 BPM ? ? Atrial Rate: 085 BPM P-R Int: 160 ms? QRS Dur: 084 ms QT Int: 364 ms ? ? ? P-R-T Axes: 045 011 057 degrees QTc Int: 433 ms ? Normal sinus rhythm Normal ECG When compared with ECG of 17-MAR-2023 23:15, No significant change was found DD/ 28 Independent Historian Clinical information obtained from an independent historian. History obtained from or confirmed by: EMS (EMS provided additional history and confirmed the history provided by the patient and the patient's correction staff) and Other (patient's correction staff provided additional history and confirmed the history provided by the patient and EMS) Chronic Conditions Patient?s care impacted by: Diabetes Critical Care Time Critical Care Time Critical Care Time: Yes Total Critical Care Time: 30 Attestation: I spent 30 minutes of Critical Care Time with this patient. This does not include time spent on separately reported billable procedures. Discharge Plan Discharge Clinical Impression: Weakness Patient Disposition: Home, Self-Care Instructions: Weakness (ED) Additional Instructions: Follow up with your primary care provider. Return to the emergency department immediately if your symptoms worsen or if you develop any dizziness, shortness of breath, difficulty breathing, chest pain, blurry vision, loss of vision, nausea, vomiting, abdominal pain, fever, chills, back pain, or any other complaints. Referrals: Shanice Wheeler MD [Primary Care Provider] - Interventions: ED Discharge Assessment Last Done: 04/01/23 23:11 Discharge Date/Time: 04/01/23 23:11 Print Language: Portuguese
[2023-04-01] MEDS: 0.9 % Sodium Chloride 1,000 ML 999 ML IV ×2 (21:04→21:54)
[2023-04-01 21:17] LABS: MANUAL DIFF FLAG NO
[2023-04-01 21:20] VITALS: BP 165/104; PULSE 87; RESP 12; TEMP 37; O2SAT 95
[2023-04-01 21:20] LABS: Basophils Percent Auto 0.6 % (0-2); Eosinophils Absolute Auto 0.1 X10*3/uL (0.0-0.4); Eosinophils Percent Auto 2.1 % (0-4); Hematocrit 41.2 % (42.0-52.0); Hemoglobin 12.9 g/dl (14.0-18.0); Imm Gran Abs Auto 0.01 X10*3/uL (0.00-0.03); Imm Gran Pct Auto 0.2 % (0.0-0.4); Lymphocytes Absolute Auto 1.9 X10*3/uL (1.2-4.9); Mean Corpuscular HGB Conc 31.3 g/dl (31.0-36.0); Mean Corpuscular Hemoglobin 26.1 pg (27.0-33.0); Mean Corpuscular Volume 83.2 fL (80.0-98.0); Mean Platelet Volume 9.5 fL (9.4-12.4); Monocytes Absolute Auto 0.4 X10*3/uL (0.1-1.2); Monocytes Percent Auto 6.3 % (2-11); Neutrophils Absolute Auto 3.9 x10*3/uL (2.0-8.3); Neutrophils Percent Auto 60.8 % (45-73); Platelet Count 317 X10*3/uL (160-400); Red Blood Count 4.95 X10*6/uL (4.60-5.80); Red Cell Distribution Width 15.4 % (11.0-16.0); White Blood Count 6.3 X10*3/uL (4.8-10.8)
[2023-04-01 21:23] LABS: Appearance Urine Clear; Color Urine Yellow; Glucose Urine UA >=1000 mg/dL (Negative); Leukocyte Esterase Urine Negative (Negative); Nitrite Urine Negative (Negative); Specific Gravity - Urine >= 1.030 (1.005-1.025); UMIC TRIGGER UACC YES; Urine Blood Negative (Negative); Urine Ketones Negative (Negative); Urine Protein 100 (2+) mg/dL (Neg-Trace)
[2023-04-01 21:29] LABS: Bacteria Urine None Seen (None Seen); Hyaline Casts Urine 0-2 /LPF (0-2); RBC Urine 0-2 /HPF (0-2); Squamous Epithelial Cell Urine 0-2 /HPF (0-2); WBC Urine 0-5 /HPF (0-5)
[2023-04-01 21:31] LABS: COVID-19 Test Negative (Negative); IDNOW Serial# 08D9AD1C
[2023-04-01 21:44] LABS: Alanine Aminotransferase 28 U/L (0-40); Albumin Level 3.4 g/dL (3.5-5.0); Alkaline Phosphatase 82 U/L (39-117); Anion Gap 13 (12-20); Aspartate Amino Transferase 29 U/L (5-37); Bilirubin Total 0.2 mg/dL (0.0-1.0); Blood Urea Nitrogen 13 mg/dL (9-16); Calcium 9.3 mg/dL (8.4-10.2); Carbon Dioxide 27 mmol/L (22-29); Chloride 106 mmol/L (96-108); Creatinine Clr Calc Pharmacy 85.4; Estimated Glomerular Filt Rate > 60; Glucose Random 326 mg/dL (60-115); Magnesium 1.9 mg/dL (1.6-2.6); Sodium 142 mmol/L (135-145); Total Protein 6.4 g/dL (6.5-8.0)
[2023-04-01 22:00] VITALS: BP 139/78; PULSE 78; RESP 11; TEMP 37; O2SAT 96
[2023-04-01 22:55] LABS: Glucose, Whole Blood 129 mg/dL (60-115)
== END 2023-04-01 23:11 | disposition home or self-care (01) ==
PROVIDERS: Physician Assistant Medical; Emergency Provider Emergency Medicine; PCP Internal Medicine
DX: R53.1 Weakness (principal); Z20.822 Contact with and (suspected) exposure to COVID-19; E11.9 Type 2 diabetes mellitus without complications
CPT/HCPCS: 80053; 81001; 82947; 83735; 85025; 87635; 93005; 96360; 96361; 99284; 99285

== ENCOUNTER 2023-04-04 17:43 | Emergency (ER) | payer OTHER, SELFPAY ==
[2023-04-04] VITALS (8 sets, daily range): BP systolic 112–194; BP diastolic 76–112; PULSE 99–115; RESP 16–19; TEMP 37.1–37.2; O2SAT 96–98; BMI 30.7
--- NOTE | ~2023-04-04 | XR_ITS ---
EXAMINATION: XR SHOULDER, RIGHT CLINICAL INFORMATION: Fall, pain. COMPARISON: None available. TECHNIQUE: Four views of the right shoulder. FINDINGS: Nonspecific focal irregularity and lucency along the inferior surface of the right glenoid. No evidence of subluxation. 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 No significant soft tissue abnormality. XR/XR shoulder RT min 2V IMPRESSION: Nonspecific focal irregularity and lucency along the inferior surface of the right glenoid, this could be related with a fracture such as bony Bankart lesion. Recommend correlation with point tenderness. Evaluation with CT or MR could be obtained as clinically indicated.
--- NOTE | 2023-04-04 19:13 | ECG_ITS ---
Test Reason : FALL Blood Pressure : / mmHG Vent. Rate : 102 BPM Atrial Rate : 102 BPM P-R Int : 156 ms QRS Dur : 086 ms QT Int : 346 ms P-R-T Axes : 052 038 060 degrees QTc Int : 450 ms Sinus tachycardia Possible Anterior infarct , age undetermined ; could be related to body habitus Abnormal ECG When compared with ECG of 01-APR-2023 21:29, No significant change was found Referred By: Yasmeen Decker Electronically Signed By:NAKUL RASMUSSEN
--- NOTE | 2023-04-04 19:16 | ED_ITS ---
HPI - General Adult General Chief complaint: Fall Stated complaint: dizziness, nausea, slid down 5 stairs, per ems Time Seen by Provider: 04/04/23 18:53 Source: patient Mode of arrival: ambulatory Limitations: no limitations History of Present Illness HPI narrative: 42 yo male with a history of diabetes with neuropathy, HTN, and orthostatic hypotension presents to the ER from [facility] via [facility] after falling down the stairs. He states that he was trying to go up the stairs with his cane when he felt dizzy half way up the stairs, and fell. He states that he tried to prevent himself from falling but ended up hitting his right arm/shoulder. He states that he currently has right shoulder pain. He reports that prior to going up the stairs he felt hot/sweaty which prompt him to go up to his room. He states that since having COVID last year he has had episodes of passing out in which he has prescribed Meclizine. He states that he used to have extreme hypoglycemia in which he would feel dizziness and pass out but reports that he has not experienced that in a long time. He reports that the paramedics took his blood sugar and was 400. He reports chest pain but states that he feel pain in the front of his chest constantly. MD complaint: right shoudler pain s/p fall Onset (ago): hour(s) Location: right and upper extremity Radiation: non-radiation Severity: moderate Pain Consistency: constant Relieving factors: none Exacerbating factors: none Associated symptoms: chest pain Treatments prior to arrival: none Related Data Allergies Allergy/AdvReac Type Severity Reaction Status Date / Time No Known Allergies Allergy Verified 04/04/23 17:51 Review of Systems Review of Systems: Yes all other systems are reviewed and are negative [facility] Past Medical History Medical History Back pain Diabetes Neuropathy Social History Social History Alcohol intake: former Smoked in Last 30 Days: No Substance Use Type: Crack/Cocaine Advance Directives: No Advance Directives Information Provided: Yes Physical Exam ED Vital Signs: Vital Signs - 24 hr 04/04/23 17:58 04/04/23 19:43 04/04/23 19:44 Temperature 99.0 F Pulse Rate 104 H 101 H 101 H Respiratory Rate 18 Blood Pressure 133/80 194/98 H 190/98 H Pulse Oximetry 98 Oxygen Delivery Method Room Air 04/04/23 19:46 04/04/23 19:47 04/04/23 21:15 Temperature 99.0 F Pulse Rate 105 H 115 H 100 Respiratory Rate 17 19 Blood Pressure 112/76 112/76 180/103 H Pulse Oximetry 98 96 Oxygen Delivery Method Room Air Room Air 04/04/23 21:56 Temperature 98.8 F Pulse Rate 99 Respiratory Rate 16 Blood Pressure 182/112 H Pulse Oximetry 96 Oxygen Delivery Method Room Air BMI result Body Mass Index 30.7 Appearance: Alert. Oriented X3. No acute distress. Head: normocephalic, atraumatic. Eyes: Pupils equal, round and reactive to light. ENT: Pharynx normal. No tonsillar swelling or exudate. Neck: Normal inspection. Neck supple. CVS: Normal heart rate and rhythm. Pulses normal. Respiratory: No respiratory distress. Breath sounds normal. Abdomen: Soft and nontender. +BS x4 Skin: Skin warm and dry. Normal skin color. Normal skin turgor. No rashes. Extremities: No lower extremity edema. No joint swelling. FROM in the right upper extremity, posterior shoulder tender to palpation. negative empty can test Neuro/psych: Oriented X 3. No motor deficit. No sensory deficit. CN II-XII i ntact. Normal speech and cognition. Medications Administered Discontinued Medications Generic Name Dose Route Start Last Admin Trade Name Freq PRN Reason Stop Dose Admin Insulin Human Lispro 15 unit 04/04/23 20:20 04/04/23 21:13 Insulin Lispro 100 Unit/Ml 3 Ml Vial SUBCUT 04/04/23 20:21 15 unit ONCE ONE Administration Medical Decision Making Medical Decision Making MDM Narrative: 42 yo male with a history of diabetes with neuropathy, HTN, and orthostatic hypotension presents to the ER after falling down the stairs after being dizzy, c/o right shoulder pain. FROM of shoulder on arrival with mild posterior te nderness. XR reviewed - possible Bankart lesion which is usually seen with anterior shoulder dislocation. not currently dislocated and his history is not consistent w/ dislocation injury. Will hold off on CT scan today of the shoulder, place in sling for comfort and have him follow up with Orthopedics. Labs showing hyperglycemia which patient states is chronic since being in his new program due to his diet there. No anion gap to suggest DKA. He was given SQ insulin w/ improvement. His orthostatic VS were positive but he never dropped his BP <110. He is on PRN midodrine for othostatic hypotension. We discussed importance of changing body positions very slowly to prevent symptoms associated with this. At this time patient is stable for d/c home with outpatient follow up with PCP and ortho. Differential Diagnosis Differential Diagnoses: The differential diagnosis associated with the presentation includes dizziness 2/2 orthostatic hypotension, dehydration, hypoglycemia, hyperglycemia, anemia, vertigo less likely stroke right shoulder pain 2/2 dislocation, acute fracture, rotator cuff injury, sprain/strain Admission/Observation Consideration of admission/observation: Escalation of care including admission/observation considered +orthostatics, however this is chronic Lab Data MDM Lab Attestation statement: I reviewed the patient's lab results. hyperglycemia, no anion gap 04/04/23 19:40 04/04/23 19:40 Labs: Lab Results 04/04/23 04/04/23 04/04/23 Range/Units 19:36 19:36 19:40 WBC 6.0 (4.8-10.8) X10*3/uL RBC 5.44 (4.60-5.80) X10*6/uL Hgb 14.3 (14.0-18.0) g/dl Hct 45.9 (42.0-52.0) % MCV 84.4 (80.0-98.0) fL MCH 26.3 L (27.0-33.0) pg MCHC 31.2 (31.0-36.0) g/dl RDW 16.0 (11.0-16.0) % Plt Count 326 (160-400) X10*3/uL MPV 9.3 L (9.4-12.4) fL Immature Gran % (Auto) 0.2 (0.0-0.4) % Neut % (Auto) 58.3 (45-73) % Lymph % (Auto) 32.0 (20-40) % [place] % (Auto) 6.9 (2-11) % Eos % (Auto) 1.8 (0-4) % Baso % (Auto) 0.8 (0-2) % Lymph # (Auto) 1.9 (1.2-4.9) X10*3/uL [place] # (Auto) 0.4 (0.1-1.2) X10*3/uL Eos # (Auto) 0.1 (0.0-0.4) X10*3/uL Baso # (Auto) 0.1 (0.0-0.2) X10*3/uL Abs Immat Gran (auto) 0.01 (0.00-0.03) X10*3/uL Absolute Neuts (auto) 3.5 (2.0-8.3) x10*3/uL Absolute Nucleated RBC 0.000 (0.0-0.012) X10*3/uL Nucleated RBC % (auto) 0.0 (0.0-0.2) /100WBC Sodium (135-145) mmol/L Potassium (3.3-5.1) mmol/L Chloride (96-108) mmol/L Carbon Dioxide (22-29) mmol/L Anion Gap (12-20) BUN (9-16) mg/dL Creatinine (0.5-1.4) mg/dL Estim Creat Clear Calc Estimated GFR POC Glucose (60-115) mg/dL Random Glucose (60-115) mg/dL Calcium (8.4-10.2) mg/dL Magnesium (1.6-2.6) mg/dL Total Bilirubin (0.0-1.0) mg/dL Direct Bilirubin (0.0-0.5) mg/dL AST (5-37) U/L ALT (0-40) U/L Alkaline Phosphatase (39-117) U/L Total Protein (6.5-8.0) g/dL Albumin (3.5-5.0) g/dL Urine Color Yellow Urine Appearance Clear Urine pH 6.5 (5.0-9.0) Ur Specific [place] >= 1.030 H (1.005-1.025) Urine Protein 30 (1+) H (Neg-Trace) mg/dL Urine Glucose (UA) >=1000 H (Negative) mg/dL Urine Ketones Negative (Negative) mg/dL Urine Blood Negative (Negative) Urine Nitrite Negative (Negative) Ur Leukocyte Esterase Negative (Negative) Urine RBC 0-2 (0-2) /HPF Urine WBC 0-5 (0-5) /HPF Ur Squamous Epith Cells 0-2 (0-2) /HPF Urine Bacteria None Seen (None Seen) Hyaline Casts 0-2 (0-2) /LPF Urine Opiates Screen Not Detected (Not Detect) Urine Fentanyl Screen Not Detected (Not Detect) Ur Barbiturates Screen Not Detected (Not Detect) Ur Phencyclidine Scrn Not Detected (Not Detect) Ur Amphetamines Screen Not Detected (Not Detect) U Benzodiazepines Scrn Not Detected (Not Detect) Urine Cocaine Screen Not Detected (Not Detect) U Marijuana (THC) Screen Not Detected (Not Detect) Ethyl Alcohol mg/dL 04/04/23 04/04/23 04/04/23 Range/Units 19:40 19:40 21:52 WBC (4.8-10.8) X10*3/uL RBC (4.60-5.80) X10*6/uL Hgb (14.0-18.0) g/dl Hct (42.0-52.0) % MCV (80.0-98.0) fL MCH (27.0-33.0) pg MCHC (31.0-36.0) g/dl RDW (11.0-16.0) % Plt Count (160-400) X10*3/uL MPV (9.4-12.4) fL Immature Gran % (Auto) (0.0-0.4) % Neut % (Auto) (45-73) % Lymph % (Auto) (20-40) % [place] % (Auto) (2-11) % Eos % (Auto) (0-4) % Baso % (Auto) (0-2) % Lymph # (Auto) (1.2-4.9) X10*3/uL [place] # (Auto) (0.1-1.2) X10*3/uL Eos # (Auto) (0.0-0.4) X10*3/uL Baso # (Auto) (0.0-0.2) X10*3/uL Abs Immat Gran (auto) (0.00-0.03) X10*3/uL Absolute Neuts (auto) (2.0-8.3) x10*3/uL Absolute Nucleated RBC (0.0-0.012) X10*3/uL Nucleated RBC % (auto) (0.0-0.2) /100WBC Sodium 142 (135-145) mmol/L Potassium 4.0 (3.3-5.1) mmol/L Chloride 107 (96-108) mmol/L Carbon Dioxide 26 (22-29) mmol/L Anion Gap 13 (12-20) BUN 15 (9-16) mg/dL Creatinine 1.18 (0.5-1.4) mg/dL Estim Creat Clear Calc 83.9 Estimated GFR > 60 POC Glucose 291 H (60-115) mg/dL Random Glucose 425 H* (60-115) mg/dL Calcium 9.7 (8.4-10.2) mg/dL Magnesium 2.0 (1.6-2.6) mg/dL Total Bilirubin 0.2 (0.0-1.0) mg/dL Direct Bilirubin < 0.2 (0.0-0.5) mg/dL AST 29 (5-37) U/L ALT 36 (0-40) U/L Alkaline Phosphatase 90 (39-117) U/L Total Protein 6.9 (6.5-8.0) g/dL Albumin 3.6 (3.5-5.0) g/dL Urine Color Urine Appearance Urine pH (5.0-9.0) Ur Specific [place] (1.005-1.025) Urine Protein (Neg-Trace) mg/dL Urine Glucose (UA) (Negative) mg/dL Urine Ketones (Negative) mg/dL Urine Blood (Negative) Urine Nitrite (Negative) Ur Leukocyte Esterase (Negative) Urine RBC (0-2) /HPF Urine WBC (0-5) /HPF Ur Squamous Epith Cells (0-2) /HPF Urine Bacteria (None Seen) Hyaline Casts (0-2) /LPF Urine Opiates Screen (Not Detect) Urine Fentanyl Screen (Not Detect) Ur Barbiturates Screen (Not Detect) Ur Phencyclidine Scrn (Not Detect) Ur Amphetamines Screen (Not Detect) U Benzodiazepines Scrn (Not Detect) Urine Cocaine Screen (Not Detect) U Marijuana (THC) Screen (Not Detect) Ethyl Alcohol < 10 mg/dL Independent Interpretation I performed an independent interpretation of an: EKG and Plain X-Ray Interpretation: no dislocation, no humerus fx, agree w/ radiology re glenoid irregularity ekg with sinus tachycardia, HR 102, no st segment elevations or depressions, normal FL interval and QTc Radiology Impression Discussion of test interpretation with radiology: I have reviewed the radiologist's reading. Radiologist Impression: XR/XR shoulder RT min 2V IMPRESSION: Nonspecific focal irregularity and lucency along the inferior surface of the right glenoid, this could be related with a fracture such as bony Bankart lesion. Recommend correlation with point tenderness. Independent Historian Clinical information obtained from an independent historian. History obtained from or confirmed by: EMS External Record Review External record reviewed: Office record, Outpatient record, Prior outpatient labs and Prior outpatient radiology Tests considered The following testing was considered but not selected: CT shoulder considered Prescription Management I considered prescription management with: Pain Medication and Other (insulin) Chronic Conditions Patient?s care impacted by: Diabetes, Hypertension and Other (orthostatic hypotension) Social Determinants Patient?s care significantly limited by Social Determinants of Health including: Other Social Determinant of Health Critical Care Time Critical Care Time Critical Care Time: No Discharge Plan Discharge Clinical Impression: Hyperglycemia, Injury of right shoulder Patient Disposition: Home, Self-Care Instructions: Diabetic Hyperglycemia (ED), Shoulder Pain (ED) Additional Instructions: Your x-ray of the shoulder today showed a possible fracture often seen with shoulder dislocations. Your shoulder was not dislocated on examination today. Your blood pressure drops significantly when you stand up. This is likely the cause of your dizziness. Make sure you change positions slowly. Your blood sugar was 400s. Limit your carb and sugars. Follow up with your doctor as soon as possible. If you develop new or worsening symptoms call 911 or come back to the ER for further evaluation. Alfred radiograf?a del hombro de hoy mostr? jericho posible fractura que a menudo se ve con dislocaciones de hombro. Alfred hombro no estaba dislocado en el examen de hoy. Tu presi?n arterial baja significativamente cuando te pones de pie. Esta es probablemente la causa de alfred mareo. Aseg?rate de cambiar de posici?n lentamente. Tu nivel de az?car en la sean era de 400s. Limite min carbohidratos y az?cares. Charly un seguimiento con alfred m?dico lo antes posible. Si desarrolla s?ntomas nuevos o que empeoran, llame al 911 o regrese a la steven de emergencias para jericho evaluaci?n adicional. Referrals: [facility] [place] [facility] [Provider Group] (XR/XR shoulder RT min 2V IMPRESSION: Nonspecific focal irregularity and lucency along the inferior surface of the right glenoid, this could be related with a fracture such as bony Bankart lesion.) Print Language: Bulgarian
--- NOTE | 2023-04-04 19:19 | MHC.EDTECH ---
EKG AND LABS WAS ORDERED DELAYED DUE TO PATIENT BEING IN IMAGING JORGE REID WAS NOTIFIED
--- NOTE | 2023-04-04 19:38 | PC.NURSE ---
pt a&ox4, sinus tach, other vss, pt reporting 7/10 right shoulder pain s/p fall. pt reports that he slipped and fell down stairs. -ve head strike/LOC. tech at bedside for EKG/labs/urine/
[2023-04-04 19:45] LABS: MANUAL DIFF FLAG NO
[2023-04-04 19:48] LABS: Basophils Absolute Auto 0.1 X10*3/uL (0.0-0.2); Basophils Percent Auto 0.8 % (0-2); Eosinophils Absolute Auto 0.1 X10*3/uL (0.0-0.4); Eosinophils Percent Auto 1.8 % (0-4); Hematocrit 45.9 % (42.0-52.0); Hemoglobin 14.3 g/dl (14.0-18.0); Imm Gran Abs Auto 0.01 X10*3/uL (0.00-0.03); Imm Gran Pct Auto 0.2 % (0.0-0.4); Lymphocytes Absolute Auto 1.9 X10*3/uL (1.2-4.9); Mean Corpuscular HGB Conc 31.2 g/dl (31.0-36.0); Mean Corpuscular Hemoglobin 26.3 pg (27.0-33.0); Mean Corpuscular Volume 84.4 fL (80.0-98.0); Mean Platelet Volume 9.3 fL (9.4-12.4); Monocytes Absolute Auto 0.4 X10*3/uL (0.1-1.2); Monocytes Percent Auto 6.9 % (2-11); Neutrophils Absolute Auto 3.5 x10*3/uL (2.0-8.3); Neutrophils Percent Auto 58.3 % (45-73); Platelet Count 326 X10*3/uL (160-400); Red Blood Count 5.44 X10*6/uL (4.60-5.80)
--- NOTE | 2023-04-04 19:49 | MHC.EDTECH ---
EKG IS DONE ED ROUNDS ARE DONE ORCHESTRATE ARE DONE VITALS ARE DONE
--- NOTE | 2023-04-04 19:50 | PC.NURSE ---
aox4. resting in bed calm cooperative. no distress noted. denies dizziness at rest. safe, no falls. breathing well.
[2023-04-04 19:56] LABS: Appearance Urine Clear; Color Urine Yellow; Glucose Urine UA >=1000 mg/dL (Negative); Leukocyte Esterase Urine Negative (Negative); Nitrite Urine Negative (Negative); PH 6.5 (5.0-9.0); Specific Gravity - Urine >= 1.030 (1.005-1.025); UMIC TRIGGER UACC YES; Urine Blood Negative (Negative); Urine Ketones Negative (Negative); Urine Protein 30 (1+) mg/dL (Neg-Trace)
[2023-04-04 19:58] LABS: Bacteria Urine None Seen (None Seen); Hyaline Casts Urine 0-2 /LPF (0-2); RBC Urine 0-2 /HPF (0-2); Squamous Epithelial Cell Urine 0-2 /HPF (0-2); WBC Urine 0-5 /HPF (0-5)
[2023-04-04 20:15] LABS: Ethanol < 10 mg/dL
[2023-04-04 20:17] LABS: Alanine Aminotransferase 36 U/L (0-40); Albumin Level 3.6 g/dL (3.5-5.0); Alkaline Phosphatase 90 U/L (39-117); Anion Gap 13 (12-20); Aspartate Amino Transferase 29 U/L (5-37); Bilirubin Direct < 0.2 mg/dL (0.0-0.5); Bilirubin Total 0.2 mg/dL (0.0-1.0); Blood Urea Nitrogen 15 mg/dL (9-16); Calcium 9.7 mg/dL (8.4-10.2); Carbon Dioxide 26 mmol/L (22-29); Chloride 107 mmol/L (96-108); Creatinine Clr Calc Pharmacy 83.9; Estimated Glomerular Filt Rate > 60; Glucose Random 425 mg/dL (60-115); Sodium 142 mmol/L (135-145); Total Protein 6.9 g/dL (6.5-8.0)
[2023-04-04 20:17] LABS: Amphetamine Screen Urine Not Detected (Not Detect); Barbiturates, Urine Not Detected (Not Detect); Benzodiazepines Screen Urine Not Detected (Not Detect); Cannabinoid Screen Urine Not Detected (Not Detect); Cocaine Screen Urine Not Detected (Not Detect); Fentanyl, urine Not Detected (Not Detect); Opiate Screen Urine Not Detected (Not Detect); Phencyclidine Screen Urine Not Detected (Not Detect)
[2023-04-04] MEDS: Insulin Lispro 100 UNIT/ML 3 ML VIAL 15 UNIT SUBCUT (21:13)
--- NOTE | 2023-04-04 21:14 | PC.NURSE ---
pt medicated per MAR.
[2023-04-04 21:57] LABS: Glucose, Whole Blood 291 mg/dL (60-115)
--- NOTE | 2023-04-04 22:02 | PC.NURSE ---
thelma sutton aware elevated bp. talking well, asymptomatic
== END 2023-04-04 22:26 | disposition home or self-care (01) ==
PROVIDERS: Physician Assistant; Emergency Provider Emergency Medicine Emergency Medical Services
DX: E11.65 Type 2 diabetes mellitus with hyperglycemia (principal); S49.91XA Unspecified injury of right shoulder and upper arm, initial encounter; W10.8XXA Fall (on) (from) other stairs and steps, initial encounter; I10 Essential (primary) hypertension; Y93.89 Activity, other specified; Y92.018 Other place in single-family (private) house as the place of occurrence of the external cause; Y99.9 Unspecified external cause status; Z79.899 Other long term (current) drug therapy
CPT/HCPCS: 36415; 73030; 80048; 80076; 80307; 81001; 82947; 83735; 85025; 93005; 99283; 99285

== ENCOUNTER 2023-04-06 09:47 | Emergency (ER) | payer OTHER, SELFPAY ==
[2023-04-06] VITALS (11 sets, daily range): BP systolic 78–192; BP diastolic 39–113; PULSE 78–92; RESP 12–18; TEMP 36.2–37.1; O2SAT 94–98; BMI 30.8
--- NOTE | ~2023-04-06 | XR_ITS ---
EXAMINATION: XR CHEST CLINICAL INFORMATION: Acute cough. COMPARISON: None available. TECHNIQUE: 2 views of the chest were obtained. FINDINGS: The lungs are hypoexpanded. No focal consolidation. No pleural effusion. There is a displaced fracture of the proximal left humerus. XR/XR chest 2V IMPRESSION: No acute cardiopulmonary process.
--- NOTE | 2023-04-06 09:54 | ECG_ITS ---
Test Reason : dizzy Blood Pressure : / mmHG Vent. Rate : 086 BPM Atrial Rate : 086 BPM P-R Int : 146 ms QRS Dur : 088 ms QT Int : 386 ms P-R-T Axes : 003 064 063 degrees QTc Int : 461 ms Normal sinus rhythm Normal ECG When compared with ECG of 04-APR-2023 19:22, No significant change was found Referred By: Bhavesh Littlejohn Electronically Signed By:NAKUL RASMUSSEN
--- NOTE | 2023-04-06 09:58 | ED_ITS ---
HPI - General Adult General Chief complaint: Dizziness Stated complaint: Dizziness Time Seen by Provider: 04/06/23 09:50 Source: patient Mode of arrival: EMS Limitations: no limitations History of Present Illness HPI narrative: 42-year-old male with history of alcohol abuse presents with dizziness/lightheadedness. The symptoms started yesterday. Patient's symptoms are severe. Symptoms are worse with ambulation. There are better with rest. He also reports a cough with no mucus production. Denies any fevers or chills. Denies any chest pain. He did have some slight shortness of breath yesterday. His symptoms that regard have improved. He denies any chest pain, myalgias, arthralgias. He denies any sick contacts. However, he did go to an AA meeting yesterday he is not sure if he had contracted something there. Patient is otherwise eating and drinking well. Denies any nausea vomiting. He does have intermittent diarrhea which is chronic in nature. Related Data Allergies Allergy/AdvReac Type Severity Reaction Status Date / Time No Known Allergies Allergy Verified 04/04/23 17:51 Review of Systems Review of Systems: CONSTITUTIONAL: Denies weight loss, fever and chills. HEENT: Denies changes in vision and hearing. RESPIRATORY: + SOB and cough. CV: Denies palpitations no CP. GI: Denies abdominal pain, nausea, vomiting and diarrhea. : Denies dysuria and urinary frequency. MSK: Denies myalgia and joint pain. SKIN: Denies rash and pruritus. NEUROLOGICAL: Denies headache and syncope. PSYCHIATRIC: Denies recent changes in mood. Denies anxiety and depression. All other ROS are negative unless in HPI PMFSH Past Medical History Medical History Back pain Diabetes Neuropathy Social History Social History Alcohol intake: never Use of substances other than those prescribed or required for medical reasons: No Substance Use Type: Crack/Cocaine Advance Directives: No Advance Directives Information Provided: Yes Physical Exam ED Vital Signs: Vital Signs - 24 hr 04/06/23 09:59 04/06/23 10:31 04/06/23 10:32 Temperature 98.7 F Pulse Rate 88 79 85 Respiratory Rate 14 Blood Pressure 102/59 L 109/67 101/70 Pulse Oximetry 98 Oxygen Delivery Method Room Air 04/06/23 10:33 04/06/23 12:38 04/06/23 12:50 Temperature 98.0 F Pulse Rate 92 83 82 Respiratory Rate 12 Blood Pressure 78/39 L 141/96 H 150/101 H Pulse Oximetry 96 Oxygen Delivery Method Room Air 04/06/23 12:51 04/06/23 12:52 04/06/23 14:29 Temperature 97.1 F Pulse Rate 86 87 89 Respiratory Rate 18 Blood Pressure 120/81 96/58 L 192/113 H Pulse Oximetry 94 Oxygen Delivery Method Room Air BMI result Body Mass Index 30.8 GEN: Well developed, no acute distress, alert, oriented HEENT: Normocephalic, atraumatic, normal external ears, nose appears normal, no oropharyngeal edema or exudates Eyes: Normal to appearance Neck: Supple, no lymphadenopathy Respiratory: Talks in complete sentences, no respiratory distress, clear to auscultation bilaterally Cardiovascular: Regular rate and rhythm, no murmurs rubs or gallops Abdomen: Soft, nontender, nondistended, no guarding, no rebound Back: No CVA tenderness Extremities: No clubbing cyanosis or edema Neurologic: No focal neurologic deficits, cranial nerves 2-12 intact, strength is 5/5 bilaterally Skin: No rash Course Reevaluation(s) Reevaluation #1: Patient had a significant episode of hypotension which resolved after intravenous fluid. I suspect orthostatic hypotension with hypovolemia and dehydration. Time: 12:44 Reevaluation #2: Remains quite orthostatic occluding with his vital signs. Will bolus at 3 L of fluid. Time: 12:55 Reevaluation #3: Patient has had 3 L of fluids. He is feeling much better. He is no longer symptomatic. He is no longer orthostatic. Will discharge at this time. Time: 15:24 Medications Administered Discontinued Medications Generic Name Dose Route Start Last Admin Trade Name Freq PRN Reason Stop Dose Admin Sodium Chloride 1,000 mls @ 999 mls/hr 04/06/23 10:00 04/06/23 11:30 Ns IV 04/06/23 11:00 Infused .Q1H1M NITIN Infusion Sodium Chloride 1,000 mls @ 999 mls/hr 04/06/23 11:15 04/06/23 12:20 Ns IV 04/06/23 12:15 Infused .Q1H1M NITIN Infusion Sodium Chloride 1,000 mls @ 999 mls/hr 04/06/23 13:00 04/06/23 14:05 Ns IV 04/06/23 14:00 999 mls/hr .Q1H1M NITIN Administration Medical Decision Making Medical Decision Making [facility] Narrative: 42-year-old male with diabetes presents with lightheadedness, cough and generalized unwellness. Examination is benign. Differential diagnosis includes viral syndrome, COVID, bronchitis, dehydration, hypovolemia, electrolyte abnormality, renal dysfunction. My plan will be to check routine laboratory analysis, EKG to rule out cardiac arrhythmia, rule out anemia with a CBC. Patient receive intravenous fluids. Has no additional symptoms at this time therefore there are no indications for medications at this time. Disposition pending improvement. Patient may require hospitalization if his symptoms remain severe and then resolved. Differential Diagnosis Differential Diagnoses: The differential diagnosis associated with the presentation includes (See above) Admission/Observation Consideration of admission/observation: Escalation of care including admission/observation considered Lab Data [facility] Lab Attestation statement: I reviewed the patient's lab results. 04/06/23 10:25 04/06/23 10:24 Labs: Lab Results 04/06/23 04/06/23 04/06/23 Range/Units 10:16 10:24 10:25 WBC 7.1 (4.8-10.8) X10*3/uL RBC 4.96 (4.60-5.80) X10*6/uL Hgb 13.1 L (14.0-18.0) g/dl Hct 42.2 (42.0-52.0) % MCV 85.1 (80.0-98.0) fL MCH 26.4 L (27.0-33.0) pg MCHC 31.0 (31.0-36.0) g/dl RDW 15.9 (11.0-16.0) % Plt Count 310 (160-400) X10*3/uL MPV 9.4 (9.4-12.4) fL Immature Gran % (Auto) 0.3 (0.0-0.4) % Neut % (Auto) 71.2 (45-73) % Lymph % (Auto) 18.7 L (20-40) % Zapata % (Auto) 7.7 (2-11) % Eos % (Auto) 1.7 (0-4) % Baso % (Auto) 0.4 (0-2) % Lymph # (Auto) 1.3 (1.2-4.9) X10*3/uL Zapata # (Auto) 0.6 (0.1-1.2) X10*3/uL Eos # (Auto) 0.1 (0.0-0.4) X10*3/uL Baso # (Auto) 0.0 (0.0-0.2) X10*3/uL Abs Immat Gran (auto) 0.02 (0.00-0.03) X10*3/uL Absolute Neuts (auto) 5.1 (2.0-8.3) x10*3/uL Absolute Nucleated RBC 0.000 (0.0-0.012) X10*3/uL Nucleated RBC % (auto) 0.0 (0.0-0.2) /100WBC Sodium 143 (135-145) mmol/L Potassium 4.3 (3.3-5.1) mmol/L Chloride 106 (96-108) mmol/L Carbon Dioxide 33 H (22-29) mmol/L Anion Gap 8 L (12-20) BUN 14 (9-16) mg/dL Creatinine 0.93 (0.5-1.4) mg/dL Estim Creat Clear Calc 106.7 Estimated GFR > 60 POC Glucose 198 H (60-115) mg/dL Random Glucose 201 H (60-115) mg/dL Calcium 9.5 (8.4-10.2) mg/dL Total Bilirubin 0.4 (0.0-1.0) mg/dL AST 22 (5-37) U/L ALT 30 (0-40) U/L Alkaline Phosphatase 79 (39-117) U/L Total Protein 6.2 L (6.5-8.0) g/dL Albumin 3.3 L (3.5-5.0) g/dL Urine Color Urine Appearance Urine pH (5.0-9.0) Ur Specific Reading (1.005-1.025) Urine Protein (Neg-Trace) mg/dL Urine Glucose (UA) (Negative) mg/dL Urine Ketones (Negative) mg/dL Urine Blood (Negative) Urine Nitrite (Negative) Ur Leukocyte Esterase (Negative) Urine RBC (0-2) /HPF Urine WBC (0-5) /HPF Ur Squamous Epith Cells (0-2) /HPF Urine Bacteria (None Seen) Hyaline Casts (0-2) /LPF Urine Opiates Screen (Not Detect) Urine Fentanyl Screen (Not Detect) Ur Barbiturates Screen (Not Detect) Ur Phencyclidine Scrn (Not Detect) Ur Amphetamines Screen (Not Detect) U Benzodiazepines Scrn (Not Detect) Urine Cocaine Screen (Not Detect) U Marijuana (THC) Screen (Not Detect) COVID-19 ([facility]MI) (Negative) COVID-19 Clin Com 04/06/23 04/06/23 04/06/23 Range/Units 10:25 13:07 13:07 WBC (4.8-10.8) X10*3/uL RBC (4.60-5.80) X10*6/uL Hgb (14.0-18.0) g/dl Hct (42.0-52.0) % MCV (80.0-98.0) fL MCH (27.0-33.0) pg MCHC (31.0-36.0) g/dl RDW (11.0-16.0) % Plt Count (160-400) X10*3/uL MPV (9.4-12.4) fL Immature Gran % (Auto) (0.0-0.4) % Neut % (Auto) (45-73) % Lymph % (Auto) (20-40) % Zapata % (Auto) (2-11) % Eos % (Auto) (0-4) % Baso % (Auto) (0-2) % Lymph # (Auto) (1.2-4.9) X10*3/uL Zapata # (Auto) (0.1-1.2) X10*3/uL Eos # (Auto) (0.0-0.4) X10*3/uL Baso # (Auto) (0.0-0.2) X10*3/uL Abs Immat Gran (auto) (0.00-0.03) X10*3/uL Absolute Neuts (auto) (2.0-8.3) x10*3/uL Absolute Nucleated RBC (0.0-0.012) X10*3/uL Nucleated RBC % (auto) (0.0-0.2) /100WBC Sodium (135-145) mmol/L Potassium (3.3-5.1) mmol/L Chloride (96-108) mmol/L Carbon Dioxide (22-29) mmol/L Anion Gap (12-20) BUN (9-16) mg/dL Creatinine (0.5-1.4) mg/dL Estim Creat Clear Calc Estimated GFR POC Glucose (60-115) mg/dL Random Glucose (60-115) mg/dL Calcium (8.4-10.2) mg/dL Total Bilirubin (0.0-1.0) mg/dL AST (5-37) U/L ALT (0-40) U/L Alkaline Phosphatase (39-117) U/L Total Protein (6.5-8.0) g/dL Albumin (3.5-5.0) g/dL Urine Color Yellow Urine Appearance Clear Urine pH 7.0 (5.0-9.0) Ur Specific Reading 1.015 (1.005-1.025) Urine Protein 100 (2+) H (Neg-Trace) mg/dL Urine Glucose (UA) >=1000 H (Negative) mg/dL Urine Ketones Negative (Negative) mg/dL Urine Blood Negative (Negative) Urine Nitrite Negative (Negative) Ur Leukocyte Esterase Negative (Negative) Urine RBC 0-2 (0-2) /HPF Urine WBC 0-5 (0-5) /HPF Ur Squamous Epith Cells 0-2 (0-2) /HPF Urine Bacteria None Seen (None Seen) Hyaline Casts 0-2 (0-2) /LPF Urine Opiates Screen Not Detected (Not Detect) Urine Fentanyl Screen Not Detected (Not Detect) Ur Barbiturates Screen Not Detected (Not Detect) Ur Phencyclidine Scrn Not Detected (Not Detect) Ur Amphetamines Screen Not Detected (Not Detect) U Benzodiazepines Scrn Not Detected (Not Detect) Urine Cocaine Screen Not Detected (Not Detect) U Marijuana (THC) Screen Not Detected (Not Detect) COVID-19 ([facility]) Negative (Negative) COVID-19 Clin Com See Note 04/06/23 Range/Units 14:11 WBC (4.8-10.8) X10*3/uL RBC (4.60-5.80) X10*6/uL Hgb (14.0-18.0) g/dl Hct (42.0-52.0) % MCV (80.0-98.0) fL MCH (27.0-33.0) pg MCHC (31.0-36.0) g/dl RDW (11.0-16.0) % Plt Count (160-400) X10*3/uL MPV (9.4-12.4) fL Immature Gran % (Auto) (0.0-0.4) % Neut % (Auto) (45-73) % Lymph % (Auto) (20-40) % Zapata % (Auto) (2-11) % Eos % (Auto) (0-4) % Baso % (Auto) (0-2) % Lymph # (Auto) (1.2-4.9) X10*3/uL Zapata # (Auto) (0.1-1.2) X10*3/uL Eos # (Auto) (0.0-0.4) X10*3/uL Baso # (Auto) (0.0-0.2) X10*3/uL Abs Immat Gran (auto) (0.00-0.03) X10*3/uL Absolute Neuts (auto) (2.0-8.3) x10*3/uL Absolute Nucleated RBC (0.0-0.012) X10*3/uL Nucleated RBC % (auto) (0.0-0.2) /100WBC Sodium (135-145) mmol/L Potassium (3.3-5.1) mmol/L Chloride (96-108) mmol/L Carbon Dioxide (22-29) mmol/L Anion Gap (12-20) BUN (9-16) mg/dL Creatinine (0.5-1.4) mg/dL Estim Creat Clear Calc Estimated GFR POC Glucose 80 (60-115) mg/dL Random Glucose (60-115) mg/dL Calcium (8.4-10.2) mg/dL Total Bilirubin (0.0-1.0) mg/dL AST (5-37) U/L ALT (0-40) U/L Alkaline Phosphatase (39-117) U/L Total Protein (6.5-8.0) g/dL Albumin (3.5-5.0) g/dL Urine Color Urine Appearance Urine pH (5.0-9.0) Ur Specific Reading (1.005-1.025) Urine Protein (Neg-Trace) mg/dL Urine Glucose (UA) (Negative) mg/dL Urine Ketones (Negative) mg/dL Urine Blood (Negative) Urine Nitrite (Negative) Ur Leukocyte Esterase (Negative) Urine RBC (0-2) /HPF Urine WBC (0-5) /HPF Ur Squamous Epith Cells (0-2) /HPF Urine Bacteria (None Seen) Hyaline Casts (0-2) /LPF Urine Opiates Screen (Not Detect) Urine Fentanyl Screen (Not Detect) Ur Barbiturates Screen (Not Detect) Ur Phencyclidine Scrn (Not Detect) Ur Amphetamines Screen (Not Detect) U Benzodiazepines Scrn (Not Detect) Urine Cocaine Screen (Not Detect) U Marijuana (THC) Screen (Not Detect) COVID-19 ([facility]) (Negative) COVID-19 Clin Com Independent Interpretation I performed an independent interpretation of an: EKG (Normal sinus rhythm heart rate 86, no acute ST elevations depressions, normal intervals, essentially normal EKG) and Plain X-Ray (Chest: Opacification seen in the right lower lobe with air bronchogram, consistent with possible pneumonia, no pleural effusions) Radiology Impression Discussion of test interpretation with radiology: I have reviewed the radiologist's reading. Radiologist Impression: XR/XR chest 2V IMPRESSION: No acute cardiopulmonary process. Dictated By: Gabriella Sargent MD Signed By: <Electronically signed by Gabriella Sargent MD in OV> 04/06/23 1110 Independent Historian Clinical information obtained from an independent historian. History obtained from or confirmed by: EMS Prescription Management I considered prescription management with: Antibiotic Chronic Conditions Patient?s care impacted by: Diabetes Critical Care Time Critical Care Time Total Critical Care Time: 35 Attestation: Approximately 35 minutes of critical care time a spent with patient under initial evaluation, frequent re-evaluation, interpretation and medical data, medical intervention for potentially life-threatening condition. All out of any procedures. Discharge Plan Discharge Clinical Impression: Lightheadedness, Cough, Orthostatic hypotension Patient Disposition: Home, Self-Care Instructions: Acute Cough (ED), Lightheadedness (ED), Hypotension (ED) Referrals: Shaince Wheeler MD [Primary Care Provider] - 3 days
[2023-04-06] MEDS: 0.9 % Sodium Chloride 1,000 ML 999 ML IV ×3 (10:27→14:05)
[2023-04-06 10:29] LABS: Glucose, Whole Blood 198 mg/dL (60-115)
[2023-04-06 10:29] LABS: MANUAL DIFF FLAG NO
[2023-04-06 10:35] LABS: Basophils Percent Auto 0.4 % (0-2); Eosinophils Absolute Auto 0.1 X10*3/uL (0.0-0.4); Eosinophils Percent Auto 1.7 % (0-4); Hematocrit 42.2 % (42.0-52.0); Hemoglobin 13.1 g/dl (14.0-18.0); Imm Gran Abs Auto 0.02 X10*3/uL (0.00-0.03); Imm Gran Pct Auto 0.3 % (0.0-0.4); Lymphocytes Absolute Auto 1.3 X10*3/uL (1.2-4.9); Lymphocytes Percent Auto 18.7 % (20-40); Mean Corpuscular Hemoglobin 26.4 pg (27.0-33.0); Mean Corpuscular Volume 85.1 fL (80.0-98.0); Mean Platelet Volume 9.4 fL (9.4-12.4); Monocytes Absolute Auto 0.6 X10*3/uL (0.1-1.2); Monocytes Percent Auto 7.7 % (2-11); Neutrophils Absolute Auto 5.1 x10*3/uL (2.0-8.3); Neutrophils Percent Auto 71.2 % (45-73); Platelet Count 310 X10*3/uL (160-400); Red Blood Count 4.96 X10*6/uL (4.60-5.80); Red Cell Distribution Width 15.9 % (11.0-16.0); White Blood Count 7.1 X10*3/uL (4.8-10.8)
[2023-04-06 11:01] LABS: Alanine Aminotransferase 30 U/L (0-40); Albumin Level 3.3 g/dL (3.5-5.0); Alkaline Phosphatase 79 U/L (39-117); Anion Gap 8 (12-20); Aspartate Amino Transferase 22 U/L (5-37); Bilirubin Total 0.4 mg/dL (0.0-1.0); Blood Urea Nitrogen 14 mg/dL (9-16); Calcium 9.5 mg/dL (8.4-10.2); Carbon Dioxide 33 mmol/L (22-29); Chloride 106 mmol/L (96-108); Creatinine Clr Calc Pharmacy 106.7; Estimated Glomerular Filt Rate > 60; Glucose Random 201 mg/dL (60-115); Potassium 4.3 mmol/L (3.3-5.1); Sodium 143 mmol/L (135-145); Total Protein 6.2 g/dL (6.5-8.0)
[2023-04-06 11:10] LABS: COVID-19 Test Negative (Negative); IDNOW Serial# BCCEAD1C
[2023-04-06 13:17] LABS: Appearance Urine Clear; Color Urine Yellow; Glucose Urine UA >=1000 mg/dL (Negative); Leukocyte Esterase Urine Negative (Negative); Nitrite Urine Negative (Negative); Specific Gravity - Urine 1.015 (1.005-1.025); UMIC TRIGGER UACC YES; Urine Blood Negative (Negative); Urine Ketones Negative (Negative); Urine Protein 100 (2+) mg/dL (Neg-Trace)
[2023-04-06 13:22] LABS: Bacteria Urine None Seen (None Seen); Hyaline Casts Urine 0-2 /LPF (0-2); RBC Urine 0-2 /HPF (0-2); Squamous Epithelial Cell Urine 0-2 /HPF (0-2); WBC Urine 0-5 /HPF (0-5)
[2023-04-06 13:30] LABS: Amphetamine Screen Urine Not Detected (Not Detect); Barbiturates, Urine Not Detected (Not Detect); Benzodiazepines Screen Urine Not Detected (Not Detect); Cannabinoid Screen Urine Not Detected (Not Detect); Cocaine Screen Urine Not Detected (Not Detect); Fentanyl, urine Not Detected (Not Detect); Opiate Screen Urine Not Detected (Not Detect); Phencyclidine Screen Urine Not Detected (Not Detect)
[2023-04-06 14:44] LABS: Glucose, Whole Blood 80 mg/dL (60-115)
--- NOTE | 2023-04-06 15:41 | PC.NURSE ---
PT'S DARRYN ARMS/LEGS ARE EDEMATOUS 3+. PT IS CALM/CO-OP
--- NOTE | 2023-04-06 16:22 | PC.NURSE ---
THIS RN ATTEMPTED TO CALL THE RESIDENTIAL THAT IS LISTED ON PT'S FACE SHEET. LEFT MESSAGE. LIDAR SCIENTIST TO FOLLOW UP
--- NOTE | 2023-04-06 16:57 | PC.NURSE ---
GROUP HOME MANAGER raghavendra engineering and scientific programmer [phone] was called she asked we have pt wait outside and she is having an uber pick them up.
== END 2023-04-06 16:58 | disposition home or self-care (01) ==
PROVIDERS: Emergency Provider Emergency Medicine; PCP Internal Medicine
DX: R42 Dizziness and giddiness (principal); R05.9 Cough, unspecified; I95.1 Orthostatic hypotension; Z20.822 Contact with and (suspected) exposure to COVID-19; Z20.828 Contact with and (suspected) exposure to other viral communicable diseases; Z79.899 Other long term (current) drug therapy
CPT/HCPCS: 71046; 80053; 80307; 81001; 82947; 85025; 87635; 93005; 96360; 96361; 99284; 99285